=== PATIENT | female | born 2000 | race Caucasian/White ===

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

== ENCOUNTER 2019-04-09 09:34 | Emergency (ER) | payer OTHER ==
[2019-04-09] MEDS ORDERED: IBUPROFEN 600 MG TABLET PO ONE (10:34)
--- NOTE | 2019-04-09 10:35 | ER Document Report ---
HPI - HPI Time Seen by Provider: 04/09/19 10:31 Notes: Patient is a 18-year-old female who presents complaint of left lateral foot pain and swelling status post twist injury yesterday. Patient states that she does have pain with ambulation and has been limping. The pain does not radiate. She not injure any other part of her body. No other concerns or complaints. Denies any headache, fever, head injury, neck pain, URI, sore throat, chest pain, palpitations, syncope, cough, shortness of breath, wheeze, dyspnea, abdominal pain, nausea/vomiting/diarrhea, urinary retention, dysuria, hematuria, loss of control of bowel or bladder, numbness/tingling, saddle anesthesia, muscle paralysis/weakness, or rash. - ROS Systems Reviewed and Negative: Yes All other systems reviewed and negative - REPRODUCTIVE Reproductive: DENIES: : Past Medical History - Social History Smoking Status: Never Smoker Family History: Reviewed & Not Pertinent Renal/ Medical History: Denies: Hx Peritoneal Dialysis Vertical Provider Document - CONSTITUTIONAL Agree With Documented VS: Yes Notes: PHYSICAL EXAMINATION: GENERAL: Well-appearing, well-nourished and in no acute distress. LUNGS: Breath sounds clear to auscultation bilaterally and equal. No wheezes rales or rhonchi. HEART: Regular rate and rhythm without murmurs, rubs, gallops. Musculoskeletal: Lt foot/ankle: + mild lateral foot swelling with tenderness associated. No deformity. FROM to passive/active. Strength 5+/5. N/V intact distal. No bony tenderness of the ankle. Achilles intact. Anterior drawer neg. Extremities: No cyanosis, clubbing, or edema b/l. Peripheral pulses 2+. Capillary refill less than 3 seconds. NEUROLOGICAL: Normal speech, limping gait. Normal sensory, motor exams PSYCH: Normal mood, normal affect. SKIN: Warm, Dry, normal turgor, no rashes or lesions noted. - INFECTION CONTROL TRAVEL OUTSIDE OF THE [place] IN LAST 30 DAYS: No Course - Re-evaluation Re-evalutation: 04/09/19 Patient is an afebrile, well-hydrated, 18-year-old female who presents to the ED with a fracture to the prox 5th metatarsal left foot. Vitals are acceptable without any significant tachycardia, tachypnea, or hypoxia. PE is otherwise unremarkable for any neurovascular compromise, obvious tendon/ligament rupture, open fracture, septic joint. See XR result. Splint applied today and crutches provided. Motrin given PO. Patient is nontoxic-appearing. No other labs or imaging warranted at this time based on H&P. Conservative measures otherwise for symptoms. Recheck with your PCM in 3-5 days. Call orthopedics to schedule an appointment for further evaluation and management. Return to the ED with any worsening/concerning symptoms otherwise as reviewed in discharge. Patient is in agreement. - Vital Signs Vital signs: Temp Pulse Resp BP Pulse Ox 98.3 F 71 16 104/56 L 100 04/09/19 09:58 04/09/19 09:58 04/09/19 09:58 04/09/19 09:58 04/09/19 09:58 Procedures - Immobilization Ankle Pre-Proc Neuro Vasc Exam: Normal Immobilizer type: Posterior ankle Performed by: PCT Post-Proc Neuro Vasc Exam: Normal, Unchanged from pre-exam Discharge - Discharge Clinical Impression: Fracture of metatarsal of left foot, closed Qualifiers: Encounter type: initial encounter Metatarsal bone: fifth Fracture alignment: nondisplaced Qualified Code(s): S92.355A - Nondisplaced fracture of fifth metatarsal bone, left foot, initial encounter for closed fracture Condition: Stable Disposition: HOME, SELF-CARE Additional Instructions: Rest, Ice, Compression, Elevation Use crutches/splint as directed Tylenol/ibuprofen as needed F/u with your PCP in 3-5 days for a recheck Call orthopedics to schedule an appointment for further evaluation and management Return to the ED with any worsening symptoms and/or development of fever, headache, chest pain, palpitations, syncope, shortness of breath, trouble breathing, abdominal pain, n/v/d, muscle weakness/paralysis, numbness/tingling, swelling, redness, or other worsening symptoms that are concerning to you. Prescriptions: Ibuprofen [Motrin 800 mg Tablet] 800 mg PO Q8H PRN #15 tab PRN Reason: Referrals: RADHA MORAN PA-C [Primary Care Provider] - Follow up as needed ANN MARIE FRY JR, DO [ACTIVE PROVISIONAL STAFF] - Follow up as needed [facility] [Provider Group] - Follow up in 3-5 days
--- NOTE | 2019-04-09 11:37 | RADIOLOGY REPORT (SQ) ---
EXAM DESCRIPTION: FOOT LEFT COMPLETE COMPLETED DATE/TIME: 04/09/2019 11:07 am REASON FOR STUDY: left lateral foot pain s/p injury COMPARISON: None. NUMBER OF VIEWS: Three views. TECHNIQUE: AP, lateral and oblique radiographic images acquired of the left foot. LIMITATIONS: None. FINDINGS: MINERALIZATION: Normal. BONES: Hairline fracture at the base of the 5th metatarsal. No significant displacement. No additio nal fractures identified. JOINTS: No effusions. SOFT TISSUES: No soft tissue swelling. No foreign body. OTHER: No other significant finding. IMPRESSION: Hairline fracture at the base of the 5th metatarsal, most compatible with avulsion injur y. No significant displacement. TECHNICAL DOCUMENTATION: JOB ID: [id number] [email or web address]- All Rights Reserved Reading location - IP/workstation name: [email or web address]
[2019-04-09 11:54] VITALS: BP 116/50
== END 2019-04-09 11:53 | disposition home or self-care (01) ==
LOC: ER 09:34
DX: S92.355A Nondisplaced fracture of fifth metatarsal bone, left foot, initial encounter for closed fracture (principal); M79.89 Other specified soft tissue disorders; X50.0XXA Overexertion from strenuous movement or load, initial encounter
CPT/HCPCS: 99283